=== PATIENT | male | born 1990 | race African-American/Black ===

== ENCOUNTER 2021-05-18 09:26 | Emergency (ER) | payer MEDICARE ==
[2021-05-18] MEDS ORDERED: Bacitracin 1 PK ONE (10:28)
[2021-05-18] MEDS ORDERED: Acetaminophen 500 MG TAB ONE (10:28)
[2021-05-18] MEDS ORDERED: cefTRIAXone\\ROCEPHIN 500 MG VIAL ONE (10:28)
[2021-05-18] MEDS ORDERED: Lidocaine 1% PF 5 ML VIAL ONE (10:30)
[2021-05-18] MEDS ORDERED: Boostrix 0.5 ML (Tdap) VIAL ONE (10:30)
[2021-05-18] MEDS ORDERED: Lidocaine 1% (PF) 30 ML VIAL ONE (10:32)
[2021-05-18 11:49] LABS: Bilirubin Negative (Negative); Blood, Urine Negative (Negative); Clarity Clear (Clear); Glucose, Urine (Dipstick) Normal (Negative); Ketone, Urine Negative (Negative); Leukocyte 75 Leu/uL (Negative); Nitrite Negative (Negative); Protein, Urine (Dipstick) Negative (Neg-Trace); RBC/HPF 0-3 HPF (0-3); Specific Gravity, Urine 1.019 (1.002-1.036); Squamous Epithelial 0-3 HPF (0-3); Urobilinogen Normal mg/dL (Less than 2); WBC/HPF 21-50 HPF (0-3); pH, Urine 6.5 (5.0-9.0)
[2021-05-18 11:50] LABS: Bacteria/HPF 1+ HPF (None Seen)
[2021-05-18 15:26] LABS: Chlam.trachomatis by PCR,Urine DETECTED (NotDetected)
== END 2021-05-18 11:03 | disposition home or self-care (01) ==
LOC: ERS 09:26
DX: T21.12XA Burn of first degree of abdominal wall, initial encounter (principal); I10 Essential (primary) hypertension; F17.210 Nicotine dependence, cigarettes, uncomplicated; X08.8XXA Exposure to other specified smoke, fire and flames, initial encounter; Z79.899 Other long term (current) drug therapy; Z23 Encounter for immunization
CPT/HCPCS: 81003; 81015; 87491; 87591; 90471; 90715; 96372; 99283; J0696; J2001